=== PATIENT | female | born 1945 | race Caucasian/White ===

== ENCOUNTER 2019-12-06 07:00 | Day surgery (SDC) | payer MEDICARE ==
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
[2019-12-05 12:40] VITALS: BMI 36.0
[2019-12-06 08:03] LABS: #Eosinphils 0.4 thou/uL (0.0-0.7); #Lymphocytes 1.4 thou/uL (1.20-3.40); #Monocytes 0.5 thou/uL (0.11-0.59); #Neutrophils 2.9 thou/uL (1.40-6.50); %Basophils 0.5 % (0.0-1.0); %Eosinophils 6.8 % (0.0-10.0); %Lymphocytes 26.8 % (21.0-51.0); %Monocytes 10.2 % (0.0-10.0); %Neutrophils 55.8 % (42.0-75.0); Hemoglobin 13.7 g/dL (12.0-16.0); Mean Corpuscular HGB CONC 32.8 g/dL (32.0-36.0); Mean Corpuscular Hemoglobin 30.2 pg (27.0-31.0); Mean Corpuscular Volume 92.3 fL (78.0-98.0); Mean Platelet Volume 8.9 fL (7.4-10.4); Platelet Count 290 thou/uL (130-400); RBC Distribution Width 13.8 % (11.5-14.5); Red Blood Cell (RBC) Count 4.53 mill/uL (4.20-5.40); White Blood Cell (WBC) Count 5.2 thou/uL (4.8-10.8)
[2019-12-06 08:12] LABS: INR-International Normal Ratio 0.9; PTT 25.6 SEC (22.9-36.1); Prothrombin Time 12.3 SEC (12.0-14.7)
[2019-12-06] MEDS ORDERED: Thrombin 5000 UNITS/5 ML VIAL ONE (08:52)
[2019-12-06] MEDS ORDERED: Bupivacaine PF 0.5% 30 ML VIAL ONE (08:52)
[2019-12-06] MEDS ORDERED: EPINEPHrine 1 MG/ML AMP ONE (08:52)
[2019-12-06] MEDS ORDERED: Fentanyl 100 MCG/2 ML VIAL ONE ×3 (08:57→11:40)
[2019-12-06] MEDS ORDERED: Midazolam HCl 2 mg/2 ml Vial ONE (08:57)
[2019-12-06] MEDS ORDERED: Phenylephrine HCL 10 MG/ML VIAL ONE (10:12)
[2019-12-06] MEDS ORDERED: Glycopyrrolate 0.2 MG/ML 5 ML SYRINGE ONE (10:24)
[2019-12-06] MEDS ORDERED: EPHEDRINE 25 MG/5 ML SYRINGE ONE (10:24)
[2019-12-06] MEDS ORDERED: Dexamethasone 20 MG/5 ML VIAL ONE (10:24)
[2019-12-06] MEDS ORDERED: PROPOFOL 200 MG/20 ML VIAL ONE (10:24)
[2019-12-06] MEDS ORDERED: Ondansetron PF 4 MG/2 ML Vial ONE (10:24)
[2019-12-06] MEDS ORDERED: diphenhydrAMINE 50 MG/ML VIAL ONE (10:24)
[2019-12-06] MEDS ORDERED: Rocuronium Bromide 10 MG/ML (10ML VIAL) ONE (10:24)
[2019-12-06] MEDS ORDERED: Promethazine 25 MG TAB PO PRN (12:21)
[2019-12-06] MEDS ORDERED: Milk Of Magnesia 30 ML UDCUP PO PRN (12:21)
[2019-12-06] MEDS ORDERED: diphenhydrAMINE 50 MG/ML VIAL IVP PRN (12:21)
[2019-12-06] MEDS ORDERED: Acetaminophen 325 MG TAB PO PRN (12:21)
[2019-12-06] MEDS ORDERED: tiZANidine HCl 4 MG TAB PO PRN (12:21)
[2019-12-06] MEDS ORDERED: Mag-Al 1200 mg/1200 mg/30 ML UDCUP PO PRN (12:21)
[2019-12-06] MEDS ORDERED: Acetaminophen 650 MG Suppository PR PRN (12:21)
[2019-12-06] MEDS ORDERED: Ondansetron PF 4 MG/2 ML Vial IVP PRN (12:21)
[2019-12-06] MEDS ORDERED: Promethazine HCl 12.5 MG SUPP PR PRN (12:21)
[2019-12-06] MEDS ORDERED: Morphine 2 MG/ML SYRINGE SLOW IVP PRN (12:21)
[2019-12-06] MEDS ORDERED: diphenhydrAMINE 25 MG CAP PO PRN (12:21)
[2019-12-06] MEDS ORDERED: traMADol HCl 50 MG TAB PO PRN ×2 (12:21)
[2019-12-06] MEDS ORDERED: Bisacodyl 10 MG SUPP PR PRN (12:21)
[2019-12-06] MEDS ORDERED: Promethazine HCl 25 MG/ML VIAL IM PRN (12:21)
[2019-12-06] MEDS ORDERED: Acetaminophen/Codeine 30-300mg Tablet PO PRN ×2 (12:21)
[2019-12-06] MEDS ORDERED: Morphine 4 MG/ML VIAL SLOW IVP PRN (12:21)
[2019-12-06] MEDS ORDERED: Sodium Chloride 0.9% 1,000 ML IV SCH (12:30)
[2019-12-06] MEDS ORDERED: Scopolamine 1.5 mg/72 hour Patch TD SCH (12:30)
[2019-12-06] MEDS ORDERED: HYDROcodone/Acetaminophen 5/325 mg Tablet ONE (13:12)
[2019-12-06] MEDS ORDERED: Gabapentin 300 MG CAP PO SCH (15:00)
--- NOTE | 2019-12-06 15:10 | OP ---
DATE OF PROCEDURE: 12/06/2019 SENIOR ANALYST DEVELOPER: Franklyn Torres PA-C PREOPERATIVE INDICATION: Treat pain and prevent neurological deterioration. PREOPERATIVE DIAGNOSIS: Lateral recess stenosis at L4-L5 with bilateral L5 radiculopathies and neurogenic claudication. POSTOPERATIVE DIAGNOSIS: Lateral recess stenosis at L4-L5 with bilateral L5 radiculopathies and neurogenic claudication. PROCEDURES PERFORMED: Decompressive laminectomy, medial facetectomy, and foraminotomy at L4-L5. PREOPERATIVE MEDICATION: Ancef 2 g IV. DRAIN NUMBER: Zero. DRAIN TYPE: None. DESCRIPTION OF PROCEDURE: The patient was brought to the operating room. General endotracheal anesthesia was induced. The patient was positioned prone on the operating table with her chest and hips supported by gel-filled chest rolls. A lateral fluoro radiograph was used to plan our incision. The lumbar skin was sterilely prepped and draped. We opened our incision with a 10 blade knife, and we controlled bleeding with bipolar and monopolar cautery. We used monopolar cautery to dissect through subcutaneous tissues to the thoracodorsal fascia. We incised the fascia in the midline and reflected paraspinal muscles off the spinous process and lamina of L4 and L5. A self-retaining retractor was placed, and a lateral fluoro radiograph confirmed the level upon which we were operating. We then used Adson and Leksell rongeur to remove the spinous process of L4 and the superior portion of L5. Kerrison rongeurs were used to fashion a laminectomy. There was a significant amount of scarred over yellow ligament, which was removed in a piecemeal fashion. In order to decompress the L5 nerve roots in the lateral recess, we had to perform medial facetectomies on both sides with Kerrison rongeurs. We ensured a Vásquez ball probe could pass through the lateral recess and out the L5 foramina. We also probed the L4 foramina. Where there was impingement, we used a foraminotomy Kerrison to widen the foramen. Once our decompression was secured, we irrigated copiously with bacitracin irrigation. We waxed the bone edges. We infused local anesthetic in the paraspinal muscles. We treated the wound with vancomycin powder, and we closed in anatomical layers. This was a clean case, no contamination. Job ID: [id number]
[2019-12-06] MEDS ORDERED: CEFAZOLIN 2 GM in Premix Bag 1 BAG IVPB SCH (17:00)
[2019-12-06] MEDS ORDERED: FLUoxetine HCl 20 MG CAP PO SCH (21:00)
[2019-12-07] MEDS ORDERED: Lisinopril 20 MG TAB PO SCH (09:00)
[2019-12-07] MEDS ORDERED: Amlodipine 10 MG TAB PO SCH (09:00)
== END 2019-12-06 15:10 | disposition home or self-care (01) ==
LOC: SDC 07:00
PROVIDERS: ATTEND Neurological Surgery
PROC: 01NB0ZZ Release Lumbar Nerve, Open Approach (ICD-10-PCS; principal; 2019-12-06)
DX: M48.062 Spinal stenosis, lumbar region with neurogenic claudication (principal); M43.16 Spondylolisthesis, lumbar region; M54.16 Radiculopathy, lumbar region; F41.9 Anxiety disorder, unspecified; I10 Essential (primary) hypertension; G62.9 Polyneuropathy, unspecified; M19.90 Unspecified osteoarthritis, unspecified site; G89.29 Other chronic pain; F32.9 Major depressive disorder, single episode, unspecified; M81.0 Age-related osteoporosis without current pathological fracture; Z79.82 Long term (current) use of aspirin; Z79.899 Other long term (current) drug therapy
CPT/HCPCS: 36415; 76000; 85025; 85610; 85730; J0171; J0690; J2250; J2370; J3010; J3370; J3490; S0020